=== PATIENT | male | born 1970 | race Caucasian/White ===

== ENCOUNTER 2017-10-24 13:00 | Observation (INO) ==
[2017-10-24 13:51] LABS: Bilirubin,Urine Small (Negative); Blood,Urine Trace (Negative); Clarity,Urine Clear (Clear); Color,Urine Dark Yellow (Yellow); Glucose,Urine (UA) >=1000 mg/dL (Normal); Ketones,Urine 15 mg/dL (Negative); Leukocyte Esterase,Urine Negative (Negative); Nitrite,Urine Negative (Negative); Protein,Urine Trace mg/dL (Neg-Trace); Specific Gravity,Urine > 1.030 (1.010-1.025); Urobilinogen,Urine Normal (Normal)
[2017-10-24 13:55] LABS: Bacteria,Urine None Seen per hpf (None-Few); Squamous Epithelial Cell,Urine Many per lpf (None-Few)
[2017-10-24 14:07] LABS: Basophils % 0.3 %; Eosinophils # 0.1 K/mcL (0.0-0.6); Hematocrit 43.8 % (37.5-50.1); Immature Granulocytes % 0.2 % (0-4); Lymphocytes # 1.3 K/mcL (0.6-4.6); Lymphocytes % 12.4 %; Mean Corpuscular HGB Conc 34.2 g/dL (31.6-35.5); Mean Corpuscular Hemoglobin 28.5 pg (28.0-33.3); Mean Corpuscular Volume 83.1 fL (83.0-100.0); Mean Platelet Volume 9.9 fL (9.4-12.4); Monocytes # 0.8 K/mcL (0.0-1.3); Monocytes % 7.9 %; Neutrophils # 8.2 K/mcL (1.6-8.9); Platelet Count 228 K/mcL (140-400); Red Blood Count 5.27 M/mcL (4.19-5.50); Segmented Neutrophils % 78.2 %
[2017-10-24 14:21] LABS: Alanine Aminotransferase 55 Units/L (7-52); Albumin 4.5 g/dL (3.5-5.7); Albumin/Globulin Ratio 1.3 (1.1-2.2); Alkaline Phosphatase 203 Units/L (34-104); Amylase 73 Units/L (29-103); Aspartate Amino Transferase 16 Units/L (13-39); BUN/Creatinine Ratio 17 (6-26); Bilirubin,Direct 0.1 mg/dL (0.0-0.2); Bilirubin,Indirect 0.6 mg/dL (0.0-1.2); Bilirubin,Total 0.7 mg/dL (0.3-1.0); Blood Urea Nitrogen 23 mg/dL (6-20); Calcium 9.6 mg/dL (8.6-10.3); Carbon Dioxide 27 mEq/L (23-29); Chloride 95 mEq/L (98-107); Globulin 3.4 g/dL (2.4-3.5); Glucose 286 mg/dL (70-105); Lipase 68 Units/L (11-82); Osmolality,Calculated 290 (280-300); Potassium 3.8 mEq/L (3.5-5.1); Sodium 133 mEq/L (136-145); Total Protein 7.9 g/dL (6.4-8.9); eGFR For African Americans > 60 (> 60); eGFR For Non-African Americans 57 (> 60)
[2017-10-24] MEDS ORDERED: 0.9 % Sodium Chloride 1,000 ML IVC ONE (16:41)
[2017-10-24] MEDS ORDERED: Ondansetron 4 MG/2 ML VIAL IVP ONE (16:43)
--- NOTE | 2017-10-24 16:44 | Emergency Department Note ---
Disposition Clinical Impression: Acute kidney injury Nausea & vomiting Qualifiers: Vomiting type: unspecified Vomiting Intractability: unspecified Qualified Code( s): R11.2 - Nausea with vomiting, unspecified Disposition: Transfer Short-Term Hosp Condition: Good Referrals: Zakia Oleary LOGISTICS DIRECTOR [Primary Care Provider] - Forms: ED Satisfaction Letter, Work/School Release Time of Disposition: 18:32 Abdominal Pain HPI - General Chief Complaint: ED Abdominal Pain Stated Complaint: VOMITING Time Seen by Provider: 10/24/17 16:34 Source: patient Mode of arrival: ambulatory Limitations: no limitations Nursing Notes Reviewed: Yes Vital Signs Reviewed: Yes - History of Present Illness HPI Narrative: 47-year-old comes in with right-sided abdominal pain nausea vomiting not able to keep anything down for several days. He states he has had about a 30 pound weight loss unexplainably last 6 months. He does have a seizure disorders not been able to take his seizure medicines for a couple of days. Patient is status post cholecystectomy and appendectomy. Pt Subjective Complaint: abdominal pain Onset (ago): day(s) Consistency: constant Location: RUQ, RLQ Pain Severity: moderate Pain Scale: 7 Quality: cramping, aching Radiation: none Improves with: nothing Worsens with: nothing Associated symptoms: Reports: nausea, vomiting - Related Data Home Medications Medication Instructions Recorded Confirmed Atorvastatin Calcium [Lipitor] 10 mg PO DAILY 10/26/15 10/26/15 Lisinopril [Zestril] 20 mg PO DAILY 10/26/15 10/26/15 OXcarbazepine [Oxcarbazepine] 1,200 mg PO HS 10/26/15 10/26/15 Omeprazole [PriLOSEC] 20 mg PO DAILY 10/26/15 10/26/15 Quetiapine Fumarate [Seroquel] 800 mg PO HS 10/26/15 10/26/15 lamoTRIgine [Lamictal] 200 mg PO HS 10/26/15 10/26/15 Previous Rx's Medication Instructions Recorded GlipiZIDE XL (24 HR) [Glucotrol XL] 10 mg PO 0800 #30 tab.er.24 10/27/15 Metoprolol [Lopressor] 100 mg PO BID #60 tablet 10/27/15 hydroCHLOROthiazide 25 mg PO DAILY #30 tablet 10/27/15 [Hydrochlorothiazide] metFORMIN [Glucophage] 500 mg PO BID #60 tablet 10/27/15 Allergies Allergy/AdvReac Type Severity Reaction Status Date / Time lisinopril AdvReac Anaphylaxis Verified 10/24/17 13:11 Penicillins AdvReac Rash Verified 10/24/17 13:11 All systems ED: reviewed and negative except as stated. Constitutional: Denies: fever, chills, weakness, weight change Eyes: Denies: eye pain, eye discharge, vision change ENT ED: Denies: ear pain, throat pain, dental pain, hearing loss, epistaxis, congestion, dysphagia Cardiovascular: Denies: chest pain, palpitations, dyspnea on exertion, edema, syncope Respiratory: Denies: cough, dyspnea, wheezes, hemoptysis, stridor Gastrointestinal: Reports: abdominal pain, nausea, vomiting. Denies: diarrhea, constipation, hematemesis, melena, hematochezia Genitourinary: Denies: urgency, dysuria, frequency, hematuria Musculoskeletal: Denies: back pain, neck pain, arthralgia, myalgia Integumentary: Denies: rash, abrasion, lesions Neurological: Denies: headache, weakness, numbness, paresthesias, confusion, abnormal gait, vertigo Psychiatric: Denies: anxiety, depression, suicidal thoughts, homicidal thoughts , auditory hallucinations, visual hallucinations Endocrine: Denies: fatigue Hematological/Lymphatic: Denies: easy bleeding, easy bruising Allergic/Immunologic: Denies: facial swelling, urticaria Abdominal Pain PMH - Past Medical History Medical history: Reports: diabetes, hyperlipidemia, hypertension, seizures, TIA Male Surgical History: Reports: appendectomy, cholecystectomy, Tonsillectomy Psychiatric history: Reports: bipolar - Social History Smoking status: Never smoker Alcohol use: Reports: none Drug use: Reports: none Physical Exam - General Limitations: no limitations General appearance: alert, in no apparent distress - Head Head exam: atraumatic, normocephalic, normal inspection - Eye Eye exam: Present: normal appearance, PERRL, EOMI - ENT ENT exam: normal exam, normal oropharynx, mucous membranes moist - Neck Neck exam: Present: normal inspection, full ROM, trachea midline - Chest Chest inspection: Present: normal inspection, symmetric chest wall rise - Respiratory Respiratory exam: Present: normal lung sounds bilaterally - Cardiovascular Cardiovascular exam: Present: regular rate, normal rhythm, normal heart sounds - Abdominal Exam Abdominal exam: Present: soft, Non-Tender. Absent: tenderness, distention, guarding, rebound, rigidity - Expanded Lower Extremity Exam Gait: observed and normal - Back Exam Back exam: Present: normal inspection, full ROM. Absent: tenderness - Neurological Exam Neurological exam: Present: alert, oriented X3 - Psychiatric Psychiatric exam: Present: normal affect, normal mood - Skin Skin exam: Present: warm, dry, intact, normal color Course - Reevaluation(s) Reevaluation #1: 47-year-old whose had nausea vomiting Keep anything down, on exam he appears dehydrated. Creatinine is elevated at 1.35, heart rate 120. He will be admitted IV fluids anti-emetics. CT scan was negative of the abdomen. Time: 18:29 - Consultations Consultation #1: Discussed with , admit. Time: 18:32 Vital Signs Temperature 98.4 F 10/24/17 13:08 Pulse Rate 120 10/24/17 13:08 Respiratory Rate 18 10/24/17 13:08 Blood Pressure 143/78 10/24/17 13:08 O2 Sat by Pulse Oximetry 99 10/24/17 13:08 Temperature 98.4 F 10/24/17 13:08 Pulse Rate 120 10/24/17 13:08 Respiratory Rate 18 10/24/17 13:08 Blood Pressure 143/78 10/24/17 13:08 O2 Sat by Pulse Oximetry 99 10/24/17 13:08 Oxygen Delivery Oxygen Delivery Room Air Abdominal Pain - Lab Data Result diagrams: 10/24/17 13:36 10/24/17 13:36 Lab Results 10/24/17 10/24/17 10/24/17 Range/Units 13:22 13:36 13:36 WBC 10.5 (4.3-11.1) K/mcL RBC 5.27 (4.19-5.50) M/mcL Hgb 15.0 (12.9-16.9) g/dL Hct 43.8 (37.5-50.1) % MCV 83.1 (83.0-100.0) fL MCH 28.5 (28.0-33.3) pg MCHC 34.2 (31.6-35.5) g/dL RDW 12.0 (11.5-14.5) % Plt Count 228 (140-400) K/mcL MPV 9.9 (9.4-12.4) fL Immature Gran % 0.2 (0-4) % Seg Neutrophils % 78.2 % Lymphocytes % 12.4 % Monocytes % 7.9 % Eosinophils % 1.0 % Basophils % 0.3 % Neutrophils # 8.2 (1.6-8.9) K/mcL Lymphocytes # 1.3 (0.6-4.6) K/mcL Monocytes # 0.8 (0.0-1.3) K/mcL Eosinophils # 0.1 (0.0-0.6) K/mcL Basophils # 0.0 (0.0-0.2) K/mcL Sodium 133 L (136-145) mEq/L Potassium 3.8 (3.5-5.1) mEq/L Chloride 95 L (98-107) mEq/L Carbon Dioxide 27 (23-29) mEq/L BUN 23 H (6-20) mg/dL Creatinine 1.35 H (0.70-1.30) mg/dL Est GFR ( Amer) > 60 (> 60) Est GFR (Non-Af Amer) 57 L (> 60) BUN/Creatinine Ratio 17 (6-26) Glucose 286 H (70-105) mg/dL Calculated Osmolality 290 (280-300) Calcium 9.6 (8.6-10.3) mg/dL Total Bilirubin 0.7 (0.3-1.0) mg/dL Direct Bilirubin 0.1 (0.0-0.2) mg/dL Indirect Bilirubin 0.6 (0.0-1.2) mg/dL AST 16 (13-39) Units/L ALT 55 H (7-52) Units/L Alkaline Phosphatase 203 H (34-104) Units/L Serum Total Protein 7.9 (6.4-8.9) g/dL Albumin 4.5 (3.5-5.7) g/dL Globulin 3.4 (2.4-3.5) g/dL Albumin/Globulin Ratio 1.3 (1.1-2.2) Amylase 73 (29-103) Units/L Lipase 68 (11-82) Units/L Urine Color Dark Yellow (Yellow) Urine Clarity Clear (Clear) Urine pH 5.0 (5.0-8.0) pH Units Ur Specific [place] > 1.030 H (1.010-1.025) Urine Protein Trace (Neg-Trace) mg/dL Urine Glucose (UA) >=1000 H (Normal) mg/dL Urine Ketones 15 H (Negative) mg/dL Urine Blood Trace H (Negative) Urine Nitrite Negative (Negative) Urine Bilirubin Small H (Negative) Urine Urobilinogen Normal (Normal) mg/dL Ur Leukocyte Esterase Negative (Negative) Urine Microscopic RBC 5-15 H (0-3) per hpf Urine Microscopic WBC 5-15 H (0-3) per hpf Ur Squamous Epith Cells Many H (None-Few) per lpf Urine Bacteria None Seen (None-Few) per hpf Ur Culture Indicated? NO (NO) - EKG Data EKG attestation: Yes I reviewed and interpreted this EKG. EKG shows normal: sinus rhythm Rate: normal Rhythm: NSR Interpretation: no acute changes
--- NOTE | 2017-10-24 19:27 | Internal Med History&Physical ---
Date of Encounter: 10/24/17 Time of Encounter: 19:25 Assessment and Plan (1) Acute kidney injury Current visit: Yes Status: Acute Acute kidney injury due to dehydration from nausea vomiting diarrhea (2) Nausea & vomiting Current visit: Yes Status: Acute Nausea vomiting and diarrhea suggestive of for gastroenteritis we will continue IV hydration and anti-emetic Qualifiers: Vomiting type: unspecified Vomiting Intractability: unspecified Qualified Code(s): R11.2 - Nausea with vomiting, unspecified (3) HTN (hypertension) Current visit: Yes Status: Chronic Chronic we will request some home medication Qualifiers: Hypertension type: essential hypertension Qualified Code(s): I10 - Essential (primary) hypertension (4) Hyperlipidemia Current visit: Yes Status: Chronic Chronic continue home medication Qualifiers: Hyperlipidemia type: pure hypercholesterolemia Qualified Code(s): E78.00 - Pure hypercholesterolemia, unspecified; E78.0 - Pure hypercholesterolemia (5) Seizure Current visit: Yes Status: Chronic Chronic no recent seizure episode (6) Type 2 diabetes mellitus Current visit: No Status: Chronic Chronic resume home medication and place on sliding scale Qualifiers: Diabetes mellitus manager of hospital insulin use: unspecified group home insulin use status Diabetes mellitus complication status: without complication Qualified Code(s): E11.9 - Type 2 diabetes mellitus without complications Internal Medicine - H&P: HPI Chief complaint: nausea and vomitting and diarrhea Admitted From: Emergency Dept Plans for Post Hospital Care: Home History of present illness: Mr. Platt is a 47 year old male Patient with history of diabetes, hypertension, prior CVA, high cholesterol, seizure disorder and bipolar. Patient presented to the emergency room right- sided abdominal pain nausea vomiting for several days according to patient been about 2 weeks and now he is unable to keep anything down and decided to come to the emergency room CT of of the abdomen was unremarkable and no acute process he has also been losing weight because he has no appetite he believes he lost about 30 pounds. No fever or chills patient be admitted for further evaluation Past Med Surg Social Fam HX - Past Medical History Medical history: diabetes, hyperlipidemia, hypertension, seizures, TIA Psychiatric history: bipolar - Past Surgical History Surgical History: appendectomy, cholecystectomy, orthopedic, other - Social History Smoking Status: Never smoker Smokeless Tobacco Status: No Alcohol use: none Drug use: none - Family History Mother Living Status: Still Living Hx Family Cancer: Yes (breast cancer) Internal Medicine - H&P: Meds Atorvastatin Calcium [Lipitor] 20 mg PO HS 10/26/15 [History] OXcarbazepine [Oxcarbazepine] 1,200 mg PO HS 10/26/15 [History] Omeprazole [PriLOSEC] 20 mg PO DAILY 10/26/15 [History] Quetiapine Fumarate [Seroquel] 800 mg PO HS 10/26/15 [History] hydroCHLOROthiazide [Hydrochlorothiazide] 25 mg PO DAILY #30 tablet 10/27/15 [Rx ] Glimepiride [Amaryl] 2 mg PO 0800 10/24/17 [History] Ondansetron HCl [Zofran] 4 mg PO Q8H PRN 10/24/17 [History] Potassium Chloride [K-Tab ER] 20 meq PO BID 10/24/17 [History] SitaGLIPtin [Januvia] 100 mg PO DAILY 10/24/17 [History] hydrOXYzine HCl [Hydroxyzine HCl] 25 mg PO Q8H PRN 10/24/17 [History] metFORMIN [Glucophage] 1,000 mg PO BIDWM 10/24/17 [History] 3 Allergy/AdvReac Type Severity Reaction Status Date / Time lisinopril AdvReac Anaphylaxis Verified 10/24/17 13:11 Penicillins AdvReac Rash Verified 10/24/17 13:11 All Systems PM: A 10-system review of systems was performed and is negative for pertinent findings except as documented above in the HPI. - Constitutional Constitutional: anorexia, weakness, weight loss - EENT Eyes: no change in vision, no discharge, no pain, no photophobia Ears: no ear discharge, no ear pain, no tinnitus Nose, mouth and throat: no dysphagia, no nasal discharge, no neck pain, no sore throat - Cardiovascular Cardiovascular ROS IM: no chest pain, no diaphoresis, no dyspnea, no lightheadedness, no palpitations, no syncope - Respiratory Respiratory: no cough, no dyspnea, no wheezing, no excessive phlegm production - Gastrointestinal Gastrointestinal: abdominal pain, diarrhea, nausea, vomiting, no hematemesis, no hematochezia, no melena - Musculoskeletal Musculoskeletal ROS IM: no numbness, no tingling - Constitutional Vitals: Temp Pulse Resp BP Pulse Ox 98.4 F 120 18 143/78 99 03/12/18 13:08 10/24/17 13:08 10/24/17 13:08 10/24/17 13:08 10/24/17 13:08 - Eye Eye exam: Present: PERRL, conjuntiva pink, sclera anicteric Pupils: Present: PERRL - Neck Neck exam general surgery: Present: supple, trachea midline. Absent: lymphadenopathy - Respiratory Respiratory exam: Present: CTAB. Absent: accessory muscle use, rales, rhonchi, wheezes - Cardiovascular Cardiovascular exam: Present: RRR, +S1, +S2. Absent: diastolic murmur, gallop, rubs, systolic murmur - GI/Abdominal GI/Abdominal exam: Present: tenderness Internal Med - H&P Results - Labs CBC & Chem 7: 10/24/17 13:36 10/24/17 13:36 Labs: Short CBC 10/24/17 Range/Units 13:36 WBC 10.5 (4.3-11.1) K/mcL Hgb 15.0 (12.9-16.9) g/dL Hct 43.8 (37.5-50.1) % Plt Count 228 (140-400) K/mcL Neutrophils # 8.2 (1.6-8.9) K/mcL BMP 10/24/17 13:36 Sodium 133 L Potassium 3.8 Chloride 95 L Carbon Dioxide 27 BUN 23 H Creatinine 1.35 H Glucose 286 H Calcium 9.6 Liver Function 10/24/17 Range/Units 13:36 Total Bilirubin 0.7 (0.3-1.0) mg/dL Direct Bilirubin 0.1 (0.0-0.2) mg/dL AST 16 (13-39) Units/L ALT 55 H (7-52) Units/L Alkaline Phosphatase 203 H (34-104) Units/L Albumin 4.5 (3.5-5.7) g/dL Urine 10/24/17 Range/Units 13:22 Urine Color Dark Yellow (Yellow) Urine Clarity Clear (Clear) Urine pH 5.0 (5.0-8.0) pH Units Ur Specific [place] > 1.030 H (1.010-1.025) Urine Protein Trace (Neg-Trace) mg/dL Urine Glucose (UA) >=1000 H (Normal) mg/dL - Impressions ITS Impressions Abdomen/Pelvis CT 10/24/17 16:37 IMPRESSION: 1. No acute process in the abdomen or pelvis. 2. Status post cholecystectomy. 3. Mild diverticulosis. D/ / 10/24/2017 17:13:30 Ravinder Mcgee MD / haim Interpreting Provider: Ravinder Mcgee MD
[2017-10-24] MEDS ORDERED: Naloxone 0.4 MG/ML INJ IVP PRN (19:31)
[2017-10-24] MEDS ORDERED: hydrOXYzine pamoate 25 MG CAPSULE PO PRN (19:33)
[2017-10-24] MEDS ORDERED: *HR* Dextrose 50 % in Water (Syg) 50 ML SYRINGE IVP PRN (19:34)
[2017-10-24] MEDS ORDERED: Dextrose Gel 15 GM/37.5 ML TUBE PO PRN ×2 (19:34)
[2017-10-24] MEDS ORDERED: D5% in Water 1,000 ML IVC PRN (19:34)
[2017-10-24] MEDS ORDERED: 0.9 % Sodium Chloride 1,000 ML IVC SCH (19:45)
[2017-10-24] MEDS: OXcarbazepine 150 MG TABLET PO SCH (23:58)
[2017-10-24] MEDS: Insulin LISPRO 300 UNITS/3 ML VIAL SQ SCH (23:59)
[2017-10-25] MEDS: Insulin LISPRO 300 UNITS/3 ML VIAL SQ SCH ×5 (00:19→21:51)
[2017-10-25] MEDS: Ondansetron 4 MG/2 ML VIAL IVP PRN ×2 (00:55→08:20)
[2017-10-25 06:56] LABS: Hematocrit 37.6 % (37.5-50.1); Mean Corpuscular HGB Conc 35.1 g/dL (31.6-35.5); Mean Corpuscular Hemoglobin 28.8 pg (28.0-33.3); Mean Corpuscular Volume 81.9 fL (83.0-100.0); Platelet Count 193 K/mcL (140-400); Red Blood Count 4.59 M/mcL (4.19-5.50); Red Cell Distribution Width 12.1 % (11.5-14.5)
[2017-10-25 07:01] LABS: Hemoglobin 13.2 g/dL (12.9-16.9)
[2017-10-25 07:09] LABS: Alanine Aminotransferase 39 Units/L (7-52); Albumin 3.6 g/dL (3.5-5.7); Albumin/Globulin Ratio 1.3 (1.1-2.2); Alkaline Phosphatase 166 Units/L (34-104); Aspartate Amino Transferase 12 Units/L (13-39); BUN/Creatinine Ratio 15 (6-26); Bilirubin,Total 0.6 mg/dL (0.3-1.0); Blood Urea Nitrogen 14 mg/dL (6-20); Calcium 8.4 mg/dL (8.6-10.3); Carbon Dioxide 28 mEq/L (23-29); Chloride 101 mEq/L (98-107); Chol/HDL Ratio 3.6 (0-4.9); Cholesterol 108 mg/dL (< 200); Globulin 2.8 g/dL (2.4-3.5); Glucose 272 mg/dL (70-105); HDL Cholesterol 30 mg/dL (40-59); LDL Cholesterol,Calculated 47 mg/dL (0-99); Magnesium 1.4 mg/dL (1.6-2.6); Osmolality,Calculated 290 (280-300); Potassium 3.3 mEq/L (3.5-5.1); Sodium 135 mEq/L (136-145); Total Protein 6.4 g/dL (6.4-8.9); Triglycerides 155 mg/dL (< 150); eGFR For African Americans > 60 (> 60); eGFR For Non-African Americans > 60 (> 60)
--- NOTE | 2017-10-25 07:29 | Electrocardiograph Report ---
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
[2017-10-25] MEDS: *HR* SitaGLIPtin 100 MG TABLET PO SCH (08:20)
[2017-10-25] MEDS: *HR* Glimepiride 2 MG TABLET PO SCH (08:20)
[2017-10-25] MEDS ORDERED: Ondansetron 4 MG/2 ML VIAL IVP PRN (10:47)
[2017-10-25] MEDS ORDERED: Ketorolac 30 MG/ML VIAL IVP ONE (11:24)
[2017-10-25] MEDS: 0.9 % Sodium Chloride 1,000 ML IVC SCH (11:49)
[2017-10-25] MEDS ORDERED: Ondansetron 4 MG/2 ML VIAL IVP SCH (12:00)
--- NOTE | 2017-10-25 15:55 | Internal Med Progress Note ---
Date of Encounter: 10/25/17 Time of Encounter: 10:55 - Assessment and plan (1) Acute kidney injury Current Visit: Yes Status: Acute Assessment and plan: Secondary to dehydration from nausea, vomiting, diarrhea for 1 week. Resolved. Serum creatinine and GFR have returned to normal. Continue IV fluid hydration, avoid nephrotoxins. (2) Nausea & vomiting Current Visit: Yes Status: Acute Assessment and plan: Patient reports nausea and vomiting for one week, he early satiety after 4 or 5 bites of oatmeal, nausea and vomiting within one hour of eating. Patient appears to be mildly dehydrated on admission with ALLEY, hyponatremia. Continue Zofran 4 mg every 6 hours as needed Continue IV fluid hydration, 0.9 normal saline at 80 ML's per hour Diabetic diet. Patient states that he was ready to advance diet. Qualifiers: Vomiting type: unspecified Vomiting Intractability: unspecified Qualified Code(s): R11.2 - Nausea with vomiting, unspecified (3) HTN (hypertension) Current Visit: Yes Status: Chronic Assessment and plan: Chronic. Well controlled. Continue to monitor vital signs. Qualifiers: Hypertension type: essential hypertension Qualified Code(s): I10 - Essential (primary) hypertension (4) Hyperlipidemia Current Visit: Yes Status: Chronic Assessment and plan: Chronic. Continue home dose of Lipitor. Qualifiers: Hyperlipidemia type: pure hypercholesterolemia Qualified Code(s): E78.00 - Pure hypercholesterolemia, unspecified; E78.0 - Pure hypercholesterolemia (5) Seizure Current Visit: Yes Status: Chronic Assessment and plan: Per patient history. Continue Trileptal. (6) Type 2 diabetes mellitus Current Visit: Yes Status: Chronic Assessment and plan: Uncontrolled. A1c is 11.6% in September,. Continue sliding scale insulin, Accu-Cheks before meals and at bedtime, diabetic diet. Qualifiers: Diabetes mellitus residential insulin use: unspecified ferry terminal agent insulin use status Diabetes mellitus complication status: without complication Qualified Code(s): E11.9 - Type 2 diabetes mellitus without complications (7) Tachycardia Current Visit: Yes Status: Acute Assessment and plan: Patient with tachycardia, rate varying between 120s to low 100s. Patient denies chest pain or shortness of breath. Patient without leukocytosis, fever, tachypnea. Symptoms concerning for withdrawal. [facility] report shows that pt had been taking gabapentin 600 mg 3 times daily as well as Tylenol 3 three times daily. Tylenol 3 was stopped in August, gabapentin appears to have been stopped in September. Patient received prescriptions for hydrocodone 5/325 from a dentist twice in September. Patient reports that his primary care provider abruptly stopped the gabapentin and Tylenol 3 because "she was afraid it would become addicted." Patient states that he flushed all of his remaining medications after he saw her. Start Toprol XL 12.5 mg by mouth daily. Reassess in the morning. Continue telemetry EKG in the morning (8) Headache Current Visit: Yes Status: Chronic Assessment and plan: Patient reports intermittent headaches for years since he was a child. Patient reports that he has seen multiple providers and has never gotten the medication with any relief. Headache located in coronal area, denies aura, n/v, photo or phonophobia with headaches. Last medication was Imitrex without relief. He reports that he has an appointment with neurology here on November 01. Patient was given Benadryl 25 mg IV, Toradol 30 mg IV, Zofran 4 mg IV. Patient reports relief from headache and states that he feels better. We will continue to monitor. Head CT will be ordered if headache continues. Qualifiers: Headache type: unspecified Headache chronicity pattern: chronic headache Intractability: not intractable Qualified Code(s): R51 - Headache - Time Spent With Patient less than 15 minutes - Subjective Interval history: Patient was seen and assessed 10:35 AM. He reports one-week history of nausea and vomiting, early satiety and nausea and vomiting within one hour of eating. He reports a 40 pound weight loss in the last 2 weeks. He denies hematochezia or melena. He also reports a history of migraines since he was a child. He reports that he has never had medication that has helped his headaches. He also reports that he has an appointment with neurology here on November 01. He reports last medication he took for his migraines with Imitrex, no relief. Patient also reports diarrhea 4-5 times a day for 1 week. He denies dizziness, lightheadedness, chest pain or shortness of breath. He reports tenderness with palpation to right mid and right lower quadrant. He denies fever or chills. - Constitutional Vitals: Temp Pulse Resp BP Pulse Ox 98.5 F 108 20 120/76 96 10/25/17 14:48 10/25/17 14:48 10/25/17 14:48 10/25/17 14:48 10/25/17 14:48 General appearance: Present: cooperative, A&O X 3, pleasant, no acute distress, answers questions appropriately - Head Head exam: Present: atraumatic, normal inspection, normocephalic - Eye Eye exam: Present: conjuntiva pink, sclera anicteric - Neck Neck exam general surgery: Present: normal inspection, supple, trachea midline. Absent: lymphadenopathy, tenderness - Respiratory Respiratory exam: Present: CTAB. Absent: accessory muscle use, rales, rhonchi, wheezes - Cardiovascular Cardiovascular exam: Present: RRR, +S1, +S2. Absent: diastolic murmur, gallop, rubs, systolic murmur - GI/Abdominal GI/Abdominal exam: Present: hyperactive bowel sounds, soft, tenderness. Absent : distended, hepatomegaly - Extremities Exam Extremities exam: Present: normal capillary refill, normal inspection, warm, radial pulses palpable and symmetrical. Absent: calf tenderness, cyanotic, pedal edema, tenderness - Neurological Exam Neurological exam: Present: alert, oriented X3, no focal deficits. Absent: facial droop, speech deficit - Skin Skin exam: Present: dry, intact, normal color, warm. Absent: rash Internal Medicine: Result - Labs CBC & Chem 7: 10/25/17 06:26 10/25/17 06:26 Labs: Short CBC 10/25/17 Range/Units 06:26 WBC 9.9 (4.3-11.1) K/mcL Hgb 13.2 D (12.9-16.9) g/dL Hct 37.6 (37.5-50.1) % Plt Count 193 (140-400) K/mcL BMP 10/25/17 06:26 Sodium 135 L Potassium 3.3 L Chloride 101 Carbon Dioxide 28 BUN 14 Creatinine 0.91 Glucose 272 H Calcium 8.4 L Liver Function 10/25/17 Range/Units 06:26 Total Bilirubin 0.6 (0.3-1.0) mg/dL AST 12 L (13-39) Units/L ALT 39 (7-52) Units/L Alkaline Phosphatase 166 H (34-104) Units/L Albumin 3.6 (3.5-5.7) g/dL Consult Discharge Plan - Plan Referrals: Zakia Oleary, JEREMIAH [Primary Care Provider] -
[2017-10-25] MEDS: Metoprolol XL (24 HR) Succ 25 MG TAB.ER.24H PO SCH (16:27)
[2017-10-25 18:40] LABS: Amphetamine Screen,Urine Negative ng/mL (Cutoff=1000); Barbiturate Screen,Urine Negative ng/mL (Cutoff=200); Benzodiazepines Screen,Urine Negative ng/mL (Cutoff=200); Cannabinoid Screen,Urine Negative ng/mL (Cutoff = 50); Cocaine Screen,Urine Negative ng/mL (Cutoff= 300); Opiate Screen,Urine Negative ng/mL (Cutoff=300); Phencyclidine Screen,Urine Negative ng/mL (Cutoff=25)
[2017-10-25 20:23] LABS: Adenovirus F 40/41 PCR Not detected (Not detect); Astrovirus PCR Not detected (Not detect); C.difficile Toxin A/B by PCR Not detected (Not detect); Campylobacter by PCR Not detected (Not detect); Cryptosporidium by PCR Not detected (Not detect); Cyclospora cayetanensis PCR Not detected (Not detect); E. coli O157 by PCR Not detected (Not detect); Entamoeba histolytica PCR Not detected (Not detect); Enteroaggregative E.coli(EAEC) ***DETECTED*** (Not detect); Enteropathogenic E.coli(EPEC) Not detected (Not detect); Enterotoxigenic E.coli (ETEC) Not detected (Not detect); Giardia lamblia PCR Not detected (Not detect); Norovirus GI/GII PCR Not detected (Not detect); Plesiomonas shigelloides PCR Not detected (Not detect); Rotavirus A PCR Not detected (Not detect); Salmonella PCR Not detected (Not detect); Sapovirus PCR Not detected (Not detect); Shig/EnteroinvasiveE coli EIEC Not detected (Not detect); Shigalike tox-prod E coli STEC Not detected (Not detect); Vibrio PCR Not detected (Not detect); Vibrio cholerae PCR Not detected (Not detect); Yersinia enterocolitica PCR Not detected (Not detect)
[2017-10-25] MEDS: OXcarbazepine 150 MG TABLET PO SCH (21:51)
[2017-10-26 06:33] LABS: Basophils % 0.5 %; Eosinophils # 0.3 K/mcL (0.0-0.6); Eosinophils % 4.7 %; Hematocrit 35.5 % (37.5-50.1); Hemoglobin 12.4 g/dL (12.9-16.9); Immature Granulocytes % 0.3 % (0-4); Lymphocytes # 1.7 K/mcL (0.6-4.6); Lymphocytes % 29.1 %; Mean Corpuscular HGB Conc 34.9 g/dL (31.6-35.5); Mean Corpuscular Hemoglobin 28.8 pg (28.0-33.3); Mean Corpuscular Volume 82.4 fL (83.0-100.0); Mean Platelet Volume 9.6 fL (9.4-12.4); Monocytes # 0.6 K/mcL (0.0-1.3); Monocytes % 10.3 %; Neutrophils # 3.2 K/mcL (1.6-8.9); Platelet Count 179 K/mcL (140-400); Red Blood Count 4.31 M/mcL (4.19-5.50); Segmented Neutrophils % 55.1 %
[2017-10-26 06:50] LABS: BUN/Creatinine Ratio 14 (6-26); Blood Urea Nitrogen 12 mg/dL (6-20); Calcium 8.5 mg/dL (8.6-10.3); Carbon Dioxide 27 mEq/L (23-29); Chloride 107 mEq/L (98-107); Glucose 181 mg/dL (70-105); Osmolality,Calculated 294 (280-300); Potassium 3.7 mEq/L (3.5-5.1); Sodium 140 mEq/L (136-145); eGFR For African Americans > 60 (> 60); eGFR For Non-African Americans > 60 (> 60)
[2017-10-26] MEDS: 0.9 % Sodium Chloride 1,000 ML IVC SCH (10:10)
[2017-10-26] MEDS: Insulin LISPRO 300 UNITS/3 ML VIAL SQ SCH ×4 (10:40→22:20)
[2017-10-26] MEDS: Metoprolol XL (24 HR) Succ 25 MG TAB.ER.24H PO SCH (12:29)
[2017-10-26] MEDS: hydroCHLOROthiazide 25 MG TABLET PO SCH (12:29)
[2017-10-26] MEDS: *HR* SitaGLIPtin 100 MG TABLET PO SCH (12:29)
[2017-10-26] MEDS: *HR* Glimepiride 2 MG TABLET PO SCH (12:38)
--- NOTE | 2017-10-26 17:31 | Internal Med Progress Note ---
Date of Encounter: 10/26/17 Time of Encounter: 12:20 - Assessment and plan (1) Acute kidney injury Current Visit: Yes Status: Acute Assessment and plan: Resolved. Continue to monitor labs and by mouth fluid intake. Try to avoid nephrotoxins. (2) Nausea & vomiting Current Visit: Yes Status: Acute Assessment and plan: Patient reports improvement with nausea today, states that it is less frequent than it has been in the past. It is controlled with antiemetics. Continue Zofran 4 mg IV every 6 hours as needed May stop IV fluids at this time due to patient being able to tolerate by mouth fluids. Continue diabetic diet. Qualifiers: Vomiting type: unspecified Vomiting Intractability: unspecified Qualified Code(s): R11.2 - Nausea with vomiting, unspecified (3) HTN (hypertension) Current Visit: Yes Status: Chronic Assessment and plan: Chronic. Well controlled. Continue home medications. Qualifiers: Hypertension type: essential hypertension Qualified Code(s): I10 - Essential (primary) hypertension (4) Hyperlipidemia Current Visit: Yes Status: Chronic Assessment and plan: Chronic. Continue home medication. Qualifiers: Hyperlipidemia type: pure hypercholesterolemia Qualified Code(s): E78.00 - Pure hypercholesterolemia, unspecified; E78.0 - Pure hypercholesterolemia (5) Seizure Current Visit: Yes Status: Chronic Assessment and plan: Per pt history, continue Trileptal (6) Type 2 diabetes mellitus Current Visit: Yes Status: Chronic Assessment and plan: Uncontrolled diabetes. Patient reports noncompliance with medication and diet. A1c was 11.6 last month. Continue sliding scale insulin, Accu-Cheks, diabetic diet. 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 He continues denied chest pain or shortness of breath. He still without leukocytosis, fever, tachypnea. Continue telemetry Continue Toprol-XL 12.5 mg by mouth daily Echocardiogram was ordered this morning, not completed today. Patient will stay overnight for evaluation tomorrow. (8) Headache Current Visit: Yes Status: Chronic Assessment and plan: Patient had mild headache this morning, he did not request any other pain medication. Due to its repetitive nature, we will do head CT. Last head CT was in March, was negative for any intracranial abnormality. Continue to treat headaches when necessary. Qualifiers: Headache type: unspecified Headache chronicity pattern: chronic headache Intractability: not intractable Qualified Code(s): R51 - Headache (9) Abdominal pain Current Visit: Yes Status: Acute Assessment and plan: Patient reports right lower quadrant and right abdominal pain, one-week history of nausea and vomiting, as well as early satiety and nausea and vomiting within one hour if he is eating. Patient reports symptoms are improving, still remains tender to palpation. Stool study revealed EAEC, will be treated with Cipro po daily and monitor for continued improvement. Abdomen/Pelvis CT 10/24/17 16:37 IMPRESSION: 1. No acute process in the abdomen or pelvis. 2. Status post cholecystectomy. 3. Mild diverticulosis. D/ / 10/24/2017 17:13:30 Ravinder Mcgee MD / haim Interpreting Provider: Ravinder Mcgee MD Abdomen Ultrasound 10/26/17 00:00 IMPRESSION: Liver mildly increased in echogenicity and coarsened in echotexture suggesting a mild degree of underlying hepatic steatosis or diffuse hepatocellular disease. Spleen is mildly enlarged measuring 14 cm in size. Patient is status post cholecystectomy. D/ / 10/26/2017 09:20:20 Mode Faith MD / Parul Mcmahan Interpreting Provider: Mode Faith MD Qualifiers: Abdominal location: right lower quadrant Qualified Code(s): R10.31 - Right lower quadrant pain (10) E. coli infection Current Visit: Yes Status: Acute Assessment and plan: Stool panel positive for EAEC. will be treated with Cipro 500mg po BID x 7 days - Time Spent With Patient less than 15 minutes - Subjective Interval history: Patient was seen and assessed 1220 PM. He reports improving abdominal pain and ability to eat meals without nausea or vomiting. He denies dizziness, lightheadedness, chest pain or shortness of breath. He reports tenderness with palpation to right mid and right lower quadrant. He did report return of mild headache today, did not request any new pain medication for it. He denies fever or chills. Patient was to have echocardiogram, it was ordered this morning and not completed. I am evaluating his tachycardia. - Constitutional Vitals: Temp Pulse Resp BP Pulse Ox 98.5 F 76 18 134/79 96 10/26/17 14:06 10/26/17 14:06 10/26/17 14:06 10/26/17 14:06 10/26/17 14:06 General appearance: Present: cooperative, A&O X 3, pleasant, no acute distress, answers questions appropriately - Head Head exam: Present: atraumatic, normal inspection, normocephalic - Eye Eye exam: Present: normal appearance, conjuntiva pink, sclera anicteric - Neck Neck exam general surgery: Present: supple, trachea midline. Absent: lymphadenopathy, tenderness - Respiratory Respiratory exam: Present: CTAB. Absent: accessory muscle use, rales, rhonchi, wheezes - Cardiovascular Cardiovascular exam: Present: RRR, +S1, +S2. Absent: diastolic murmur, gallop, rubs, systolic murmur - GI/Abdominal GI/Abdominal exam: Present: normal bowel sounds, soft. Absent: distended, hepatomegaly, tenderness - Extremities Exam Extremities exam: Present: normal capillary refill, normal inspection, warm, radial pulses palpable and symmetrical. Absent: calf tenderness, cyanotic, pedal edema, tenderness - Neurological Exam Neurological exam: Present: alert, oriented X3, no focal deficits. Absent: facial droop, speech deficit - Skin Skin exam: Present: dry, intact, normal color, warm. Absent: rash Internal Medicine: Result - Labs CBC & Chem 7: 10/26/17 06:02 10/26/17 06:02 Labs: Short CBC 10/26/17 Range/Units 06:02 WBC 5.7 (4.3-11.1) K/mcL Hgb 12.4 L (12.9-16.9) g/dL Hct 35.5 L (37.5-50.1) % Plt Count 179 (140-400) K/mcL Neutrophils # 3.2 (1.6-8.9) K/mcL BMP 10/26/17 06:02 Sodium 140 Potassium 3.7 Chloride 107 Carbon Dioxide 27 BUN 12 Creatinine 0.83 Glucose 181 H Calcium 8.5 L Liver Function 10/26/17 Range/Units 06:02 Alkaline Phosphatase 149 H (34-104) Units/L - Impressions Impressions Abdomen Ultrasound 10/26/17 00:00 IMPRESSION: Liver mildly increased in echogenicity and coarsened in echotexture suggesting a mild degree of underlying hepatic steatosis or diffuse hepatocellular disease. Spleen is mildly enlarged measuring 14 cm in size. Patient is status post cholecystectomy. D/ / 10/26/2017 09:20:20 Mode Faith MD / Parul Mcmahan Interpreting Provider: Mode Faith MD Consult Discharge Plan - Plan Referrals: Zakia Oleary CNP [Primary Care Provider] -
[2017-10-26] MEDS: Acetaminophen 325 MG TABLET PO PRN (19:24)
[2017-10-26] MEDS: OXcarbazepine 150 MG TABLET PO SCH (21:22)
[2017-10-27 07:15] LABS: Basophils % 0.6 %; Eosinophils # 0.3 K/mcL (0.0-0.6); Hematocrit 37.7 % (37.5-50.1); Hemoglobin 12.9 g/dL (12.9-16.9); Immature Granulocytes % 0.3 % (0-4); Lymphocytes # 2.1 K/mcL (0.6-4.6); Lymphocytes % 29.6 %; Mean Corpuscular HGB Conc 34.2 g/dL (31.6-35.5); Mean Corpuscular Hemoglobin 28.5 pg (28.0-33.3); Mean Corpuscular Volume 83.4 fL (83.0-100.0); Mean Platelet Volume 9.5 fL (9.4-12.4); Monocytes # 0.7 K/mcL (0.0-1.3); Monocytes % 10.2 %; Neutrophils # 3.9 K/mcL (1.6-8.9); Platelet Count 197 K/mcL (140-400); Red Blood Count 4.52 M/mcL (4.19-5.50); Red Cell Distribution Width 11.8 % (11.5-14.5); Segmented Neutrophils % 55.3 %
[2017-10-27 07:45] VITALS: BP 128/83
[2017-10-27] MEDS: Metoprolol XL (24 HR) Succ 25 MG TAB.ER.24H PO SCH (08:31)
[2017-10-27] MEDS: *HR* Glimepiride 2 MG TABLET PO SCH (08:32)
[2017-10-27] MEDS: *HR* SitaGLIPtin 100 MG TABLET PO SCH (08:32)
[2017-10-27] MEDS: hydroCHLOROthiazide 25 MG TABLET PO SCH (08:32)
[2017-10-27] MEDS: Insulin LISPRO 300 UNITS/3 ML VIAL SQ SCH ×2 (08:37→11:42)
[2017-10-27 09:14] LABS: BUN/Creatinine Ratio 13 (6-26); Blood Urea Nitrogen 10 mg/dL (6-20); Calcium 9.1 mg/dL (8.6-10.3); Carbon Dioxide 29 mEq/L (23-29); Chloride 104 mEq/L (98-107); Glucose 168 mg/dL (70-105); Osmolality,Calculated 287 (280-300); Potassium 3.8 mEq/L (3.5-5.1); Sodium 137 mEq/L (136-145); eGFR For African Americans > 60 (> 60); eGFR For Non-African Americans > 60 (> 60)
[2017-10-27] MEDS: Acetaminophen 325 MG TABLET PO PRN (13:24)
--- NOTE | 2017-10-27 13:53 | Discharge Summary ---
- NOTES TO OUTPATIENT PROVIDER Notes to Outpatient Provider: pt will need follow up for diabetes, A1c 11.6%. Treated for Stool EAEC with Cipro x 7 days, will need follow up for reevaluation. Pt also treated for tachycardia, given rx for Toprol XL 12.5mg po daily, will need follow up evaluation, echo was normal. Date of Encounter: 10/27/17 Time of Encounter: 12:38 - Discharge Diagnosis (1) Acute kidney injury Priority: Secondary Status: Resolved Comments: Resolved (2) Nausea & vomiting Priority: Secondary Status: Resolved Comments: Resolved. Pt denies both nausea and vomiting. Labs WNL. Qualifiers: Vomiting type: unspecified Vomiting Intractability: unspecified Qualified Code(s): R11.2 - Nausea with vomiting, unspecified (3) HTN (hypertension) Priority: Secondary Status: Chronic Comments: Chronic. Continue home medications. Qualifiers: Hypertension type: essential hypertension Qualified Code(s): I10 - Essential (primary) hypertension (4) Hyperlipidemia Priority: Secondary Status: Chronic Comments: Chronic. Continue home medications. Qualifiers: Hyperlipidemia type: pure hypercholesterolemia Qualified Code(s): E78.00 - Pure hypercholesterolemia, unspecified; E78.0 - Pure hypercholesterolemia (5) Seizure Priority: Secondary Status: Chronic Comments: Per pt history. Continue home dose of Trileptal . (6) Type 2 diabetes mellitus Priority: Secondary Status: Chronic Comments: Diabetes poorly controlled. Pt reports noncompliance with medications and diet. Pt will continue home medications after discharge. Qualifiers: Diabetes mellitus buttermaker insulin use: unspecified buttermaker insulin use status Diabetes mellitus complication status: without complication Qualified Code(s): E11.9 - Type 2 diabetes mellitus without complications (7) Tachycardia Priority: Secondary Status: Acute Comments: Rate well controlled with Toprol XL 12.5mg po daily. Echo showed an LVEF of 55- 60%, normal right ventricular structure and function, no significant valvular dysfunction, normal wall segment showed normal motion. Unclear etiology tachycardia as patient had no signs of SIRS or sepsis, no signs of infection. The patient denies, as stated previously, tachycardia could be due to withdrawal symptoms. Continue beta josh and follow with primary care. Abdomen/Pelvis CT 10/24/17 16:37 IMPRESSION: 1. No acute process in the abdomen or pelvis. 2. Status post cholecystectomy. 3. Mild diverticulosis. D/ / 10/24/2017 17:13:30 Ravinder Mcgee MD / haim Interpreting Provider: Ravinder Mcgee MD Abdomen Ultrasound 10/26/17 00:00 IMPRESSION: Liver mildly increased in echogenicity and coarsened in echotexture suggesting a mild degree of underlying hepatic steatosis or diffuse hepatocellular disease. Spleen is mildly enlarged measuring 14 cm in size. Patient is status post cholecystectomy. D/ / 10/26/2017 09:20:20 Mode Faith MD / Parul Mcmahan Interpreting Provider: Mode Faith MD Echocardiogram 10/26/17 08:18 Impressions: LVEF 55-60%. Normal right ventricular structure and function. No significant valvular dysfunction. No pulmonary hypertension. Left Ventricular Wall Motion: Rest Echo Findings All wall segments showed normal motion. (8) Headache Priority: Secondary Status: Resolved Comments: Resolved. Qualifiers: Headache type: unspecified Headache chronicity pattern: chronic headache Intractability: not intractable Qualified Code(s): R51 - Headache (9) Abdominal pain Priority: Primary Status: Resolved Comments: Resolved. Patient denies abdominal pain today, there is no tenderness to palpation. And soft with bowel sounds present. Stool studies showed EAEC, patient was treated with Cipro by mouth twice daily and will need to follow with primary care for continued evaluation. Continue normal diet, patient is tolerating by mouth food and fluid well. Abdomen/Pelvis CT 10/24/17 16:37 IMPRESSION: 1. No acute process in the abdomen or pelvis. 2. Status post cholecystectomy. 3. Mild diverticulosis. D/ / 10/24/2017 17:13:30 Ravinder Mcgee MD / haim Interpreting Provider: Ravinder Mcgee MD Abdomen Ultrasound 10/26/17 00:00 IMPRESSION: Liver mildly increased in echogenicity and coarsened in echotexture suggesting a mild degree of underlying hepatic steatosis or diffuse hepatocellular disease. Spleen is mildly enlarged measuring 14 cm in size. Patient is status post cholecystectomy. D/ / 10/26/2017 09:20:20 Mode Faith MD / Parul Mcmahan Interpreting Provider: Mode Faith MD Qualifiers: Abdominal location: right lower quadrant Qualified Code(s): R10.31 - Right lower quadrant pain (10) E. coli infection Priority: Secondary Status: Acute Comments: Stool panel positive for EAEC. Cipro 500 mg by mouth twice daily for 7 days. Hospital course: Mr. Platt is a 47 year old male with past medical history of hypertension, hyperlipidemia, seizures, chronic headaches. Patient presented to the emergency department with complaint of recent weight loss, right sided abdominal pain, nausea and vomiting. Patient had no electrolyte imbalances or obvious signs of dehydration other than mild ALLEY. Patient was treated with IV fluids, antiemetics and had some mild improvement. During admission, patient was tachycardic. At this time, there is no known etiology for the tachycardia, he is controlled with Toprol-XL 12.5 mg by mouth daily. He denies any chest pain and echocardiogram showed preserved ejection fraction and no valvular dysfunction. Stool panel was positive for Escherichia coli infection, he will be treated with Cipro 500 mg by mouth twice daily. Patient reports significant improvement states that headache has improved, nausea and vomiting have resolved , abdominal pain is gone. I recommend that patient follow with primary care for evaluation of hyperglycemia and uncontrolled diabetes. A1c is greater than 11. Patient reports noncompliance with diet, exercise, medications. Labs and stable and within normal limits, patient is appropriate for discharge. - Time Spent with Patient Total time spent providing and/or coordinating discharge services: Less than 30 minutes - Discharge Medications Prescriptions: Ciprofloxacin [Cipro] 500 mg PO BID #12 tablet Metoprolol XL (24 HR) Succ [Toprol Xl] 12.5 mg PO DAILY #15 tab.er.24h Home Medications: Atorvastatin Calcium [Lipitor] 20 mg PO HS 10/26/15 [History] OXcarbazepine [Oxcarbazepine] 1,200 mg PO HS 10/26/15 [History] Omeprazole [PriLOSEC] 20 mg PO DAILY 10/26/15 [History] Quetiapine Fumarate [Seroquel] 800 mg PO HS 10/26/15 [History] hydroCHLOROthiazide [Hydrochlorothiazide] 25 mg PO DAILY #30 tablet 10/27/15 [Rx ] Glimepiride [Amaryl] 2 mg PO 0800 10/24/17 [History] Ondansetron HCl [Zofran] 4 mg PO Q8H PRN 10/24/17 [History] Potassium Chloride [K-Tab ER] 20 meq PO BID 10/24/17 [History] SitaGLIPtin [Januvia] 100 mg PO DAILY 10/24/17 [History] hydrOXYzine HCl [Hydroxyzine HCl] 25 mg PO Q8H PRN 10/24/17 [History] metFORMIN [Glucophage] 1,000 mg PO BIDWM 10/24/17 [History] Ciprofloxacin [Cipro] 500 mg PO BID #12 tablet 10/27/17 [Rx] Metoprolol XL (24 HR) Succ [Toprol Xl] 12.5 mg PO DAILY #15 tab.er.24h 10/27/17 [Rx] Allergies/Adverse Reactions: 3 Allergy/AdvReac Type Severity Reaction Status Date / Time lisinopril AdvReac Anaphylaxis Verified 10/24/17 13:11 Penicillins AdvReac Rash Verified 10/24/17 13:11 Date of admission: 10/24/17 21:23 Primary care physician: Zakia Oleary CNP Consults: 10/25/17 00:33 Consult to Nutrition [CONS] Routine Comment: pt states 30 pound weight loss Consulting Provider: NUTRITION Reason for Dietary Consult: Diet Education Discharging clinician: Ivania Almaguer Anticipated date of discharge: 10/27/17 - Constitutional Vitals: Temp Pulse Resp BP Pulse Ox 98 F 79 16 128/83 96 10/27/17 06:50 10/27/17 06:50 10/27/17 06:50 10/27/17 06:50 10/27/17 06:50 General appearance: Present: cooperative, A&O X 3, pleasant, no acute distress, answers questions appropriately - Head Head exam: Present: atraumatic, normal inspection, normocephalic - Eye Eye exam: Present: normal appearance, conjuntiva pink, sclera anicteric - Neck Neck exam general surgery: Present: supple, trachea midline. Absent: lymphadenopathy, tenderness - Respiratory Respiratory exam: Present: CTAB. Absent: accessory muscle use, chest wall tenderness, rales, respiratory distress, rhonchi, wheezes - Cardiovascular Cardiovascular exam: Present: RRR, +S1, +S2. Absent: diastolic murmur, gallop, rubs, systolic murmur - GI/Abdominal GI/Abdominal exam: Present: normal bowel sounds, soft. Absent: distended, hepatomegaly, tenderness - Extremities Exam Extremities exam: Present: normal capillary refill, warm, radial pulses palpable and symmetrical. Absent: calf tenderness, cyanotic, pedal edema, tenderness - Neurological Exam Neurological exam: Present: alert, oriented X3, no focal deficits. Absent: facial droop, speech deficit - Skin Skin exam: Present: dry, intact, normal color, warm. Absent: rash - Patient Status Disposition: Home, Self-Care Condition: Good Functional capacity at discharge: independent ambulation Overall status at discharge: patient is progressing back to baseline - Discharge Instructions Follow Up With: Zakia Oleary CNP [Primary Care Provider] - Additional Instructions: Please follow up with your PCP in the next 7-10 days to recheck your abdomen, your heart rate, and your blood sugar. Please take your medications as directed, check your blood sugar at least twice daily. Return to the ER as neeeded for any other problems or concerns, or if your symptoms return or worsen. REsume your other home medications and your new prescriptions are at your pharmacy. Return to your normal diet and activities as tolerated. - Diet and Activity Activity: increase activity as tolerated Diet: advance to your usual diet
--- NOTE | 2017-10-29 10:58 | Electrocardiograph Report ---
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
--- NOTE | 2017-10-29 10:58 | Electrocardiograph Report ---
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
== END 2017-10-27 15:32 | disposition home or self-care (01) ==
LOC: EMEROO 13:00 → 3NENU 13:00
PROVIDERS: ADMIT Internal Medicine; ATTEND Internal Medicine